=== PATIENT | male | born 1935 | race Caucasian/White ===

== ENCOUNTER → 2016-05-17 | Outpatient (CLI) | payer MEDICARE, BC ==
--- NOTE | 2016-05-18 10:24 | Diagnostic Imaging Report ---
APPROVED REPORT CPT Code: 09177 Present Symptoms Lower Extremity Edema: Bilateral Comments: Swelling BILATERAL: Imaging reveals a patent deep venous system bilaterally. There is no evidence of thrombus within the femoral, popliteal or tibial segments. The greater saphenous veins are also within normal limits. Doppler indicates normal spontaneous flow within these segments. Bilateral deep and superficial venous system is evaluated for venous reflux study. There is an evidence of venous reflux within the left superficial venous system. The reflux was lasted longer than 0.5 seconds in the left greater saphenous vein at the proximal thigh, mid thigh and knee level.
== END | disposition home or self-care (01) ==
LOC: VAS 10:39
DX: R22.43 Localized swelling, mass and lump, lower limb, bilateral (principal)
CPT/HCPCS: 93970